=== PATIENT | female | born 1960 | race Caucasian/White ===

== ENCOUNTER → 2019-01-02 | Outpatient (CLI) | payer BC ==
--- NOTE | 2019-01-02 17:48 | RAD ---
EXAM DESCRIPTION: Chest,2 Views CLINICAL HISTORY: CHEST PAIN COMPARISON: None TECHNIQUE: PA/lateral FINDINGS: Metallic density at the level of the thoracic inlet is thought to be external to the patient rather than a swallowed foreign body in the esophagus. Clinical correlation recommended.. Heart size is normal with normal pulmonary vascularity. No pleural effusion or pneumothorax. Lungs are clear with no consolidating infiltrate. Lateral view shows intact sternum and T-spine. IMPRESSION: No acute process is identified in the chest. Electronically signed by: Jesús Morales MD 01/02/2019 5:46 PM CDT
== END ==
LOC: YCFC.O 16:57
PROVIDERS: ATTEND Nurse Practitioner Family
DX: R07.89 Other chest pain (principal)

== ENCOUNTER → 2019-02-24 | Outpatient (CLI) | payer BC | LOC: YCFC.O 11:10 | PROVIDERS: ATTEND Nurse Practitioner | DX: N39.0 Urinary tract infection, site not specified (principal) ==

== ENCOUNTER → 2019-06-27 | Outpatient (CLI) | payer BC ==
--- NOTE | 2019-06-27 19:52 | US ---
EXAM DESCRIPTION: Soft Tissue,Extremity: ULTRASOUND. CLINICAL HISTORY: 58 years Female SUBCUTANEOUS NODULE COMPARISON: None Available. TECHNIQUE: Transcutaneous scanning: Ruelas-scale and Doppler modes. FINDINGS: Heterogeneous mass with echogenic margins isoechoic to the surrounding lipomatous subcutaneous tissue measures 3.5 x 1.3 x 4.6 cm. Nonvascular, and abutting the subcutaneous fascia. Minimal posterior acoustic enhancement. Wider than tall orientation.. No large calcifications or cystic component. Consistent with a lipoma. IMPRESSION: 4.6 cm lipoma in the adipose subcutaneous layer right medial lower leg. Electronically signed by: Agusto Pruett MD 06/27/2019 7:51 PM [facility]
== END ==
LOC: LAB.O 10:15
PROVIDERS: ATTEND Family Medicine
DX: Z00.00 Encounter for general adult medical examination without abnormal findings (principal); Z13.220 Encounter for screening for lipoid disorders; D17.9 Benign lipomatous neoplasm, unspecified

== ENCOUNTER 2019-11-01 09:52 | Emergency (ER) | payer BC, OTHER ==
--- NOTE | 2019-11-01 10:02 | ED.PDOC ---
History of Present Illness - General Time Seen by Provider: 11/01/19 09:54 - History of Present Illness Initial Comments: 58 y/o female with dysuria starting yesterday but becoming severe this morning with frequency, incontinence, urgency and hematuria. Has had a hysterectomy. No fever or back pain Allergies/Adverse Reactions: Allergies NO KNOWN ALLERGY Allergy (Verified 11/01/19 10:00) Home Medications: Ambulatory Orders NK 11/01/19 Review of Systems - Review of Systems Constitutional: Denies: chills, fever EENTM: States: no symptoms reported Respiratory: States: no symptoms reported Cardiology: States: no symptoms reported Gastrointestinal/Abdominal: States: abdominal pain Genitourinary: States: see HPI, dysuria, frequency, hematuria Musculoskeletal: Denies: back pain Neurological: States: no symptoms reported Endocrine: States: no symptoms reported Family Medical History - Family History Mother Family History: Unknown Living Status: Unknown Physical Exam - Physical Exam General Appearance: Anxious Eyes, Ears, Nose, Throat Exam: PERRL/EOMI Neck: full range of motion, supple Cardiovascular/Respiratory: regular rate, rhythm, no M/R/G, no JVD Gastrointestinal/Abdominal: soft, other - suprapubic tenderness Back Exam: no CVA tenderness Extremity: normal range of motion Skin Exam: normal color Departure - Departure Clinical Impression: Urinary tract infection Disposition: Discharge to Home or Self Care Referrals: Obi Morse MD [Primary Care Provider] - 1-2 Weeks Home Medications: Ambulatory Orders NK 11/01/19
[2019-11-01 10:05] VITALS: TEMP 98.5; O2SAT 98
[2019-11-01] MEDS: PHENAZOPYRIDINE HCL 200 MG TAB PO ONE (10:05)
[2019-11-01 10:37] VITALS: BP 117/94
== END 2019-11-01 10:36 | disposition home or self-care (01) ==
LOC: ER 09:52
DX: N39.0 Urinary tract infection, site not specified (principal)

== ENCOUNTER → 2019-11-14 | Outpatient (CLI) | payer OTHER | LOC: LAB.O 11:32 | PROVIDERS: ATTEND Family Medicine | DX: N39.0 Urinary tract infection, site not specified (principal) ==

== ENCOUNTER → 2019-12-28 | Outpatient (CLI) | payer OTHER ==
--- NOTE | 2019-12-28 19:04 | MAM ---
EXAM DESCRIPTION: 3D Screening BILATERAL : Digital Mammography. CLINICAL HISTORY: 59 years Female SCREEN . No complaints. Mother with breast cancer age 67. Remote family history of breast cancer. Menarche age 15. Childbirth age 23. Menopause age 41. No HRT. Lifetime risk of developing breast cancer (Tyrer-Cuzick model)(%): 14.5. COMPARISON: 2-D digital screening bilateral mammography June 2013. TECHNIQUE: Bilateral CC and MLO projection full-field images, digital tomosynthesis mammographic technique. Bilateral digital 2-D full-field MLO images. CAD available for 2-D images. FINDINGS: The breast parenchymal density pattern is: Heterogeneously dense breast tissue, which may obscure small masses. No skin thickening or nipple retraction. No new focal, stellate mass or density, focal asymmetry , and no suspicious microcalcifications. IMPRESSION: BI-RADS CATEGORY: 1 - NEGATIVE RECOMMENDATIONS: FOLLOW UP: Routine digital bilateral screening, one year interval from December 2019. Written communication explaining the findings and follow-up, will be mailed to the patient and referring health care provider. According to the [employer], yearly mammograms are recommended starting at age 40 and continuing as long as a woman is in good health. Any breast change noted on a breast self-exam should be reported promptly to the patient's healthcare provider. Breast MRI is recommended for women with an approximately 20-25% or greater lifetime risk of breast cancer, including women with a strong family history of breast or ovarian cancer and women who have been treated for Hodgkin's disease. A negative mammographic report should not delay tissue diagnosis in patients with significant clinical history or physical findings. Extremely dense breast tissue limits the sensitivity of digital mammography. Electronically signed by: Agusto Pruett MD 12/28/2019 7:03 PM CDT
== END ==
LOC: MAMMO 09:16
PROVIDERS: ATTEND Family Medicine
DX: Z12.31 Encounter for screening mammogram for malignant neoplasm of breast (principal)

== ENCOUNTER → 2019-12-29 | Outpatient (CLI) | payer BC, OTHER | LOC: GMA MATASK 10:47 | PROVIDERS: ATTEND Family Medicine | DX: I20.9 Angina pectoris, unspecified (principal) ==

== ENCOUNTER 2020-02-02 05:43 | Day surgery (SDC) | payer OTHER ==
[2020-02-02] MEDS ORDERED: LACTATED RINGERS 1,000 ML ONE (06:31)
[2020-02-02] MEDS ORDERED: PROPOFOL 200 MG/20 ML VIAL IV ONE (07:00)
[2020-02-02] MEDS ORDERED: ONDANSETRON INJ 4 MG/2 ML VIAL ONE (07:00)
[2020-02-02] MEDS ORDERED: LIDOCAINE 1% 10 ML VIAL INJ ONE (07:00)
[2020-02-02] MEDS ORDERED: fentaNYL CITRATE INJ 50 MCG/ML AMP ONE (09:36)
[2020-02-02] MEDS ORDERED: MIDAZOLAM INJ 2 MG/2 ML VIAL ONE (09:36)
--- NOTE | 2020-02-02 10:39 | OP ---
DATE OF PROCEDURE: 02/02/20 PREOPERATIVE DIAGNOSIS: 1. Dysphagia. 2. Heme positive stool. POSTOPERATIVE DIAGNOSIS: 1. Normal EGD. 2. Normal colon. PROCEDURE: 1. EGD. 2. Complete colonoscopy. SURGEON: Thierno Jacobsen MD ANESTHESIA: General. FINDINGS: The EGD revealed there was no evidence of esophageal stricture. The stomach and duodenum appeared normal. There was no evidence of hiatal hernia and no evidence of dilated esophagus or abnormal motility on EGD. The colonoscopy was completely normal with no evidence of polyps, colitis or diverticulosis. PLAN: Discharge. Followup and discuss other evaluation of her esophagus. INDICATION: As stated. PROCEDURE: General anesthesia was induced in the lateral position. With bite block in place, the EGD scope was passed into the esophagus without difficulty. Careful examination on entrance revealed no obvious abnormalities, specifically, no stricture to explain her dysphagia and occasional regurgitation. We got into the body of the stomach. It appeared normal. The examination into the second portion of the duodenum was normal. Upon withdrawal, there was no evidence of gastritis. Retroflexion revealed no evidence of a hiatal hernia. The rest of the stomach exam was normal. Upon careful withdrawal, the GE junction was normal. I identified no evidence of stricture, no hypermotility, no evidence of dilated esophagus, no evidence of Zenker's and pharynx appeared normal as well. The patient was then positioned and colonoscopy was performed. Digital rectal exam was normal. The colonoscope was introduced. She had a little tortuous sigmoid colon with large folds, but no evidence of diverticulosis. We reached the cecum as identified by the terminal ileum and appendiceal orifice. Upon withdrawal, there were no polyps or abnormal mucosal surfaces identified. The patient tolerated the procedure and was taken to Recovery to be discharged. We will discuss the findings in followup. #[id number] cc: Tay Hobbs MD [facility]
[2020-02-02 11:07] VITALS: TEMP 97.7
[2020-02-02 11:08] VITALS: BP 133/91; O2SAT 100
== END 2020-02-02 11:05 | disposition home or self-care (01) ==
LOC: AMB 05:43
PROVIDERS: ATTEND Surgery
DX: R13.10 Dysphagia, unspecified (principal); R19.5 Other fecal abnormalities; Q43.8 Other specified congenital malformations of intestine; K21.9 Gastro-esophageal reflux disease without esophagitis; Z80.0 Family history of malignant neoplasm of digestive organs; Z88.8 Allergy status to other drugs, medicaments and biological substances; Z79.899 Other long term (current) drug therapy
CPT/HCPCS: 00813; 43235; 45378; J2250; J2405; J3490; J7120

== ENCOUNTER → 2020-07-25 | Outpatient (CLI) | payer OTHER | LOC: YCFC.O 11:36 | PROVIDERS: ATTEND Nurse Practitioner | DX: Z20.828 Contact with and (suspected) exposure to other viral communicable diseases (principal) ==